=== PATIENT | female | born 1960 | race African-American/Black ===

== ENCOUNTER 2019-05-27 11:25 | Day surgery (SDC) | payer OTHER ==
[2019-05-27] MEDS ORDERED: LIDOCAINE HCL/PF 2% SDV 5ML VIAL ONE ×2 (11:29→12:47)
[2019-05-27] MEDS ORDERED: PROPOFOL 20 ML ONE ×2 (11:29)
[2019-05-27 11:58] VITALS: BMI 19.6
[2019-05-27] MEDS ORDERED: METOPROLOL TARTRATE 5 MG/5 ML VIAL ONE ×2 (12:31→12:46)
[2019-05-27 13:46] VITALS: BP 170/92; PULSE 64; TEMP 97.8
== END 2019-05-27 13:46 | disposition home or self-care (01) ==
LOC: FASU-ENDO 11:25
PROVIDERS: ATTEND Internal Medicine Gastroenterology
PROC: 0DJD8ZZ Inspection of Lower Intestinal Tract, Via Natural or Artificial Opening Endoscopic (ICD-10-PCS; principal; 2019-05-27 12:26)
DX: D64.9 Anemia, unspecified (principal); K64.0 First degree hemorrhoids; K63.89 Other specified diseases of intestine